=== PATIENT | female | born 1980 | race Caucasian/White ===

== ENCOUNTER 2017-09-24 13:04 | Inpatient (IN) | payer OTHER ==
[2017-09-24] MEDS ORDERED: METHYLERGONOVINE 0.2 MG INJ IM (15:00)
[2017-09-24] MEDS ORDERED: CARBOPROST 250 MCG INJ IM (15:00)
[2017-09-24] MEDS ORDERED: LIDOCAINE 1% (MPF) 30 ML INJ INJ (15:00)
[2017-09-24] MEDS ORDERED: IBUPROFEN 600 MG TAB PO (15:00)
[2017-09-24] MEDS ORDERED: BUTORPHANOL 2 MG INJ IV ×2 (15:00)
[2017-09-24] MEDS ORDERED: MISOPROSTOL 200 MCG TAB PR (15:00)
[2017-09-24] MEDS: LACTATED RINGER'S 1,000 ML IV ×2 (15:16→20:50)
[2017-09-24 15:41] LABS: ADD MAN DIFF? NO
[2017-09-24 15:44] LABS: WHITE BLOOD COUNT 9.4 10^3/ul (4.8-10.8)
[2017-09-24 15:44] LABS: BASOPHILS % 0.3 % (0.0-2.0); EOSINOPHILS # 0.1 10^3/ul (0.0-0.5); EOSINOPHILS % 0.6 % (0.0-7.0); HEMATOCRIT 32.8 % (37.0-47.0); HEMOGLOBIN 10.6 g/dl (12.0-16.0); LYMPHOCYTES % 32.1 % (15.0-51.0); MEAN CORPUSCULAR HEMOGLOBIN 25.9 pg (29.0-33.0); MEAN CORPUSCULAR HGB CONC 32.3 g/dl (32.0-37.0); MEAN CORPUSCULAR VOLUME 80.2 fl (82.0-101.0); MEAN PLATELET VOLUME 12.1 fl (7.4-10.4); MONOCYTE # 0.6 10^3/ul (0.3-0.9); MONOCYTES % 6.5 % (0.0-11.0); NEUTROPHIL # 5.7 10^3/ul (1.6-7.5); PLATELET COUNT 228 10^3/UL (140-415); RED BLOOD COUNT 4.09 10^6/ul (4.20-5.40); RED CELL DISTRIBUTION WIDTH 15.3 % (11.5-14.5)
[2017-09-24 16:20] LABS: INR 0.84; PROTIME 11.6 Sec (11.9-14.9); PT RATIO 0.9
[2017-09-24 16:21] LABS: PARTIAL THROMBOPLASTIN TIME 26.6 Sec (25.0-35.0)
[2017-09-24 16:34] LABS: HEPATITIS B SURFACE ANTIGEN NEGATIVE (NEGATIVE)
[2017-09-24] MEDS: DEXTROSE 5%-LR 1,000 ML IV (20:50)
[2017-09-24] MEDS ORDERED: FENTAnyl 2MCG/ML-ROPIV 0.2% 100 ML (21:17)
[2017-09-24 21:53] LABS: RAPID PLASMA REAGIN NONREACTIVE (NR)
[2017-09-24] MEDS ORDERED: ONDANSETRON 4 MG INJ IV (22:00)
[2017-09-24] MEDS ORDERED: NALOXONE (0.4 MG/ML) INJ IV (22:00)
[2017-09-24] MEDS ORDERED: DIPHENHYDRAMINE 50 MG INJ IV (22:00)
[2017-09-24] MEDS: FENTAnyl 2MCG/ML-ROPIV 0.2% 100 ML BAG EPI (22:00)
[2017-09-25] MEDS: LACTATED RINGER'S 1,000 ML IV ×2 (01:59→08:00)
[2017-09-25] MEDS: DEXTROSE 5%-LR 1,000 ML IV ×3 (04:30→19:56)
[2017-09-25] MEDS: FENTAnyl 2MCG/ML-ROPIV 0.2% 100 ML BAG EPI ×3 (05:51→19:49)
[2017-09-25] MEDS: OXYTOCIN 30 UNITS/LR 500 ML IV (10:20)
[2017-09-25] MEDS ORDERED: OXYTOCIN 30 UNITS/LR 500 ML IV (10:30)
[2017-09-26] MEDS: FENTAnyl 2MCG/ML-ROPIV 0.2% 100 ML BAG EPI (01:53)
[2017-09-26] MEDS: LACTATED RINGER'S 1,000 ML IV (03:36)
[2017-09-26] MEDS: OXYTOCIN 30 UNITS/LR 500 ML IV ×2 (04:30→04:31)
[2017-09-26] MEDS: MINERAL OIL LIGHT 10 ML VIAL TOP (04:31)
[2017-09-26] MEDS ORDERED: MIDAZOLAM 1 MG/ML 2 ML INJ (07:11)
[2017-09-26] MEDS ORDERED: FENTAnyl 50 MCG/ML VIAL (07:11)
[2017-09-26] MEDS ORDERED: CEFAZOLIN 1 GM INJ (07:46)
[2017-09-26] MEDS ORDERED: KETOROLAC 30 MG INJ (08:03)
[2017-09-26] MEDS: KETOROLAC 30 MG INJ IV (08:12)
[2017-09-26] MEDS ORDERED: MEPERIDINE 25 MG INJ IV (08:30)
[2017-09-26] MEDS ORDERED: DIPHENHYDRAMINE 50 MG INJ IV (08:30)
[2017-09-26] MEDS ORDERED: morphine (1 MG/ML) 10ML SYRINGE IV ×2 (08:30)
[2017-09-26] MEDS ORDERED: ONDANSETRON 4 MG INJ IV (08:30)
[2017-09-26] MEDS ORDERED: KETOROLAC 30 MG INJ IV (08:30)
[2017-09-26] MEDS ORDERED: FENTAnyl 50 MCG/ML VIAL IV (08:30)
[2017-09-26] MEDS ORDERED: METOCLOPRAMIDE 10 MG INJ IV (08:30)
[2017-09-26] MEDS ORDERED: MISOPROSTOL 200 MCG TAB PR (10:00)
[2017-09-26] MEDS ORDERED: ZOLPIDEM 5 MG TAB PO (10:00)
[2017-09-26] MEDS ORDERED: CARBOPROST 250 MCG INJ IM (10:00)
[2017-09-26] MEDS ORDERED: OXYTOCIN 30 UNITS/LR 500 ML IV (10:00)
[2017-09-26] MEDS ORDERED: METHYLERGONOVINE 0.2 MG INJ IM (10:00)
[2017-09-26] MEDS: BENZOCAINE 20% 56 ML SPRAY TOP (10:17)
[2017-09-26] MEDS: SENNA/DOCUSATE NA (8.6MG/50MG) TAB PO ×2 (10:18→21:55)
[2017-09-26] MEDS: LANOLIN 7 GM TUBE TOP (10:18)
[2017-09-26] MEDS: WITCH HAZEL/GLYCERIN PAD PR (10:18)
[2017-09-26] MEDS: OXYCODONE/ASPIRIN (4.88/325) TAB PO ×2 (16:15→22:15)
[2017-09-26] MEDS: IBUPROFEN 600 MG TAB PO ×2 (17:51)
[2017-09-27] MEDS: IBUPROFEN 600 MG TAB PO ×5 (00:10→23:33)
[2017-09-27 08:26] LABS: ADD MAN DIFF? NO
[2017-09-27 08:29] LABS: WHITE BLOOD COUNT 10.5 10^3/ul (4.8-10.8)
[2017-09-27 08:29] LABS: BASOPHILS % 0.2 % (0.0-2.0); EOSINOPHILS # 0.2 10^3/ul (0.0-0.5); EOSINOPHILS % 1.4 % (0.0-7.0); HEMATOCRIT 29.8 % (37.0-47.0); HEMOGLOBIN 9.6 g/dl (12.0-16.0); LYMPHOCYTES # 2.9 10^3/ul (0.8-2.9); LYMPHOCYTES % 27.2 % (15.0-51.0); MEAN CORPUSCULAR HEMOGLOBIN 25.7 pg (29.0-33.0); MEAN CORPUSCULAR HGB CONC 32.2 g/dl (32.0-37.0); MEAN CORPUSCULAR VOLUME 79.7 fl (82.0-101.0); MEAN PLATELET VOLUME 11.4 fl (7.4-10.4); MONOCYTE # 0.6 10^3/ul (0.3-0.9); MONOCYTES % 5.8 % (0.0-11.0); NEUTROPHIL # 6.8 10^3/ul (1.6-7.5); NEUTROPHILS % 64.8 % (39.0-77.0); PLATELET COUNT 262 10^3/UL (140-415); RED BLOOD COUNT 3.74 10^6/ul (4.20-5.40); RED CELL DISTRIBUTION WIDTH 15.3 % (11.5-14.5)
[2017-09-27] MEDS: SENNA/DOCUSATE NA (8.6MG/50MG) TAB PO ×2 (09:21→21:00)
[2017-09-27] MEDS: OXYCODONE/ASPIRIN (4.88/325) TAB PO (21:00)
[2017-09-28] MEDS: IBUPROFEN 600 MG TAB PO ×2 (05:49→11:34)
[2017-09-28] MEDS: SENNA/DOCUSATE NA (8.6MG/50MG) TAB PO (08:54)
[2017-09-28] MEDS: OXYCODONE/ASPIRIN (4.88/325) TAB PO (08:58)
[2017-09-28] MEDS: DIPHTH/TET/ACEL PERTUSS (ADULT) 0.5 ML VIAL IM* (11:37)
== END 2017-09-28 16:54 | disposition home or self-care (01) | DRG 767 ==
LOC: OBT 13:04 → L-D 09-26 08:02 → PP1 09-26 09:31 → OBT 14:37 → L-D 14:29
PROVIDERS: Obstetrics & Gynecology
PROC: 0UT70ZZ Resection of Bilateral Fallopian Tubes, Open Approach (ICD-10-PCS; 2017-09-26 06:30)
DX: O80 Encounter for full-term uncomplicated delivery (principal); Z30.2 Encounter for sterilization; Z3A.39 39 weeks gestation of pregnancy
CPT/HCPCS: 62319; 76818; 82962; 85025; 85610; 85730; 86592; 86850; 86900; 86901; 87340; 88302; 99464